=== PATIENT | male | born 1965 | race Caucasian/White ===

== ENCOUNTER → 2019-11-29 08:05 | Outpatient (BNVA) | payer BC, SELFPAY | PROVIDERS: PCP Student in an Organized Health Care Education/Training Program; Visit Provider Specialist | DX: R55 Syncope and collapse (principal) | CPT/HCPCS: 95816 ==

== ENCOUNTER → 2020-04-17 08:11 | Outpatient (BNVA) | payer BC, SELFPAY | PROVIDERS: PCP Student in an Organized Health Care Education/Training Program; Visit Provider Specialist | DX: R55 Syncope and collapse (principal) | CPT/HCPCS: 99204 ==